=== PATIENT | male | born 1960 | race Caucasian/White ===

== ENCOUNTER → 2021-11-10 09:24 | Outpatient (CLI) | payer OTHER, SELFPAY ==
[2021-11-10 12:25] LABS: COVID19 -Nasal RAPID Negative (Negative)
== END ==
PROVIDERS: PCP Internal Medicine Infectious Disease; Visit Provider Family Medicine Sleep Medicine
DX: Z20.822 Contact with and (suspected) exposure to COVID-19 (principal)
CPT/HCPCS: 87635; C9803

== ENCOUNTER 2021-11-13 09:52 | Day surgery (SDC) | payer OTHER, SELFPAY ==
--- NOTE | 2021-11-13 | PATH_ITS ---
[facility] Accession Number: [id number] . 01 Material submitted: . PART A: colon - DESCENDING COLON POLYP X2 PART B: colon - ASCENDING COLON POLYP PART C: cecum - CECUM POLYP PART D: colon - RECTAL/SIGMOID COLON POLYP X3 . 02 Diagnosis: A. Descending Colon Polyps, Biopsies: Tubular adenoma x2. . B. Ascending Colon Polyp, Biopsy: Small serrated lesion, consistent with early sessile serrated adenoma. . C. Cecal Polyp, Biopsy: Small serrated lesion, consistent with early sessile serrated adenoma. . D. Rectal/Sigmoid Colon Polyps, Biopsies: Hyperplastic polyp x3. [facility] 11/15/2021 1539 Local . 02 Electronically signed: . Gregg Ramos MD, PhD, Pathologist NPI- [id number] . 01 Gross description: . Part A: DESCENDING COLON POLYP X2: Received in formalin are 2 fragment(s) of victor, soft tissue measuring 0.2 x 0.1 x 0.1 cm to 0.1 x 0.1 x 0.1 cm submitted entirely in 1 cassette(s) Part B: ASCENDING COLON POLYP: Received in formalin is 1 fragment(s) of victor, soft tissue measuring 0.5 x 0.3 x 0.2 cm submitted entirely in 1 cassette(s) Part C: CECUM POLYP: Received in formalin is 1 fragment(s) of victor, soft tissue measuring 0.1 x 0.1 x 0.1 cm submitted entirely in 1 cassette(s) Part D: RECTAL/SIGMOID COLON POLYP X3: Received in formalin are 3 fragment(s) of victor, soft tissue measuring 0.3 x 0.2 x 0.1 cm to 0.1 x 0.1 x 0.1 cm submitted entirely in 1 cassette(s) /CPE 11/14/2021 1050 Local . 02 Pathologist provided ICD-10: D12.4, D12.2, D12.0, K62.1 . 02 CPT . 846499, 252192, 137192, 855156 Specimen Comment: A courtesy copy of this report has been sent to [facility] Pathology Performed at: [address] [facility] [address] [place] [address], [place], [place] [id number] MD Madi Richard MD Phone: [phone] Performed at: [address] [facility] [address] [place], [place] [id number] MD Valerie Cowart MD Phone: [phone]
[2021-11-13 10:36] VITALS: BP 129/75; PULSE 79; RESP 16; TEMP 36.4; O2SAT 97; BMI 31.4
[2021-11-13] MEDS: SODIUM CHLORIDE 0.9% 1,000 ML 84 ML IV (10:57)
--- NOTE | 2021-11-13 11:54 | PM.HP.1 ---
History of Present Illness History of Present Illness Date Patient Seen: 11/13/21 Time Patient Seen: 11:54 Chief complaint: SCREENING COLONOSCOPY Narrative: I reviewed Ceci Greene's note from September 27. No changes. Patient History Medical History DM (diabetes mellitus) History of gastroesophageal reflux (GERD) HTN (hypertension) Hypercholesteremia Surgical History S/P cervical spinal fusion Family & Social History Social History: household members spouse Tobacco & Substance use: Tobacco type cigarettes Smoking Status Former smoker alcohol intake frequency holiday/special occasion Meds Home Medications and Allergies Home Medications Medication Instructions Recorded Confirmed Type atorvastatin 40 mg tablet 40 mg PO DAILY 11/13/21 11/13/21 History hydrochlorothiazide 25 mg tablet 25 mg PO DAILY 11/13/21 11/13/21 History lisinopril 10 mg tablet 10 mg PO DAILY 11/13/21 11/13/21 History loratadine 10 mg tablet 10 mg PO DAILY 11/13/21 11/13/21 History metformin 500 mg tablet 500 mg PO BID 11/13/21 11/13/21 History omeprazole 20 mg capsule,delayed 20 mg PO DAILY 11/13/21 11/13/21 History release Allergies Allergy/AdvReac Type Severity Reaction Status Date / Time No Known Drug Allergies Allergy Verified 11/13/21 10:23 Review of Systems Review of Systems ROS: Yes All systems reviewed with the patient and are negative except as otherwise documented Exam Vital Signs (past 8 hours): - 11/13/21 10:36 Temperature 97.5 F L Pulse Rate 79 Respiratory Rate 16 Blood Pressure 129/75 Pulse Oximetry 97 Oxygen Delivery Method Room Air Const General: cooperative and comfortable Orientation: alert HENKY Head: normocephalic Ears: external ears normal Nose: external nose normal Face and sinus: normal facial exam Mouth: oral mucosae normal Eyes General: appearance normal, both eyes and all related structures Neck Neck: normal visual inspection Chest Chest: normal inspection of the chest Resp Effort & Inspection: normal respiratory effort Cardio Rate: regular rate GI Inspection: normal to inspection Skin General: no rashes or lesions noted and No jaundice Neuro General: patient alert and moves all extremities Cognition: normal cognition Speech: speech normal Extrem General: no pedal edema Psych Appearance: grossly normal Assessment & Plan Assessment & Plan narrative: 61-year-old male indicated for colon cancer screening. Colonoscopy is planned for today. Time Spent With Patient Critical Care time: I spent a total of [] minutes of critical care time on this patient's care today; this time is exclusive of procedural time.
--- NOTE | 2021-11-13 11:56 | PM.PREOP ---
Pre-operative Note COVID-19 COVID-19 status: Negative Result date/Date tested (Pos, Neg/Pending): 11/10/21 Criteria for continued procedure: Possibility delay results in more complex future surgery or treatment Interval Note History & Physical reviewed/Exam performed by Physician: Yes Changes to H&P: No ASA Class (for procedural sedation): II
--- NOTE | 2021-11-13 13:51 | P.OP.COLON_ITS ---
Operative Date/Time/Diagnoses Date of procedure: 11/13/21 Time of procedure: 13:51 Pre-op diagnosis: Colon cancer screening Post-op diagnosis: same Procedure & Clinicians Study performed: Colonoscopy with hot snare polypectomy cold snare polypectomy and cold forceps polypectomy Same procedure as scheduled: Yes Indications: Colon cancer screening Surgeon: Abhay Perez Procedure Notes SCOAP/Timeout: Done Procedure in detail: After the risks and benefits were explained, written and verbal informed consent was obtained. The patient was brought into the procedure room and placed into the left lateral decubitus position. Please see nurse post production assistant notes for sedation details. Digital rectal examination was accomplished. The scope was introduced into the patient and advanced under direct visualization to the cecum as identified by the appendiceal orifice and ileocecal valve. The scope was slowly withdrawn to carefully examine the mucosa for any defects or lesions. Comprehensive imaging was accomplished throughout the rectum including the dentate line. The colon was decompressed, the scope was then removed from the patient who tolerated the procedure well. Adult colonoscope Bowel prep adequate Scope withdrawal time: 14 minutes Sedation minutes: 31 Complications: none Impression: There was a diminutive polyp in the cecum removed with cold forceps. There was a 6 mm polyp that probably was hyperplastic at the hepatic flexure removed with hot snare. In the descending colon there were diminutive polyps x2 removed with cold snare. In the rectum and rectosigmoid region there were 3 sessile small polyps the largest measuring perhaps 5 mm and removed with hot snare. The 2 smaller ones with cold snare. Endoscopic diagnosis: Multiple small colon polyps Post-procedure Plan for aftercare: 1. Await histopathology 2. If more than 2 of these polyps are returned with adenomatous features, repeat colonoscopy will be suggested for 3 years. Otherwise a 5 year follow-up would be reasonable. Disposition: PACU
[2021-11-13 13:55] VITALS: BP 103/56; PULSE 75; RESP 18; TEMP 36.8; O2SAT 97
[2021-11-13 14:02] VITALS: BP 105/66; PULSE 72; RESP 18; O2SAT 98
[2021-11-13 14:04] VITALS: BP 111/69; PULSE 72; RESP 16; O2SAT 98
[2021-11-13 14:15] VITALS: BP 116/70; PULSE 78; RESP 16; O2SAT 100
[2021-11-13 14:25] VITALS: BP 118/68; PULSE 72; RESP 16; TEMP 35.5; O2SAT 99
== END 2021-11-13 14:27 | disposition home or self-care (01) ==
PROVIDERS: PCP Internal Medicine Infectious Disease; Referring Provider Internal Medicine Gastroenterology; Visit Provider Internal Medicine Gastroenterology
PROC: 0DJD8ZZ Inspection of Lower Intestinal Tract, Via Natural or Artificial Opening Endoscopic (ICD-10-PCS; CPT 45378; principal; 2021-11-13 13:00)
DX: Z12.11 Encounter for screening for malignant neoplasm of colon (principal); E11.9 Type 2 diabetes mellitus without complications; I10 Essential (primary) hypertension; E78.00 Pure hypercholesterolemia, unspecified; Z79.84 Long term (current) use of oral hypoglycemic drugs; D12.4 Benign neoplasm of descending colon; D12.0 Benign neoplasm of cecum
CPT/HCPCS: 45385; 45380; J2704